=== PATIENT | male | born 1980 | race Two or more races ===

== ENCOUNTER 2020-06-13 10:21 | Emergency (ER) | payer OTHER ==
[~2020-06-13] VITALS: Ht 175.3 cm; Wt 97.5 kg
[~2020-06-13 10:21] MED LIST: KETO10TA2 PO
== END 2020-06-13 16:00 | disposition home or self-care (01) ==
LOC: ER 10:21
DX: R10.32 Left lower quadrant pain (principal)

== ENCOUNTER 2020-06-17 19:53 | Emergency (ER) | payer OTHER ==
[~2020-06-17] VITALS: Ht 172.7 cm; Wt 90.7 kg
== END 2020-06-17 23:30 | disposition home or self-care (01) ==
LOC: ER 19:53
DX: N39.0 Urinary tract infection, site not specified (principal)

== ENCOUNTER 2021-04-19 10:20 | Emergency (ER) | payer OTHER ==
[~2021-04-19] VITALS: Ht 172.7 cm; Wt 98.9 kg
[2021-04-19] MEDS ORDERED: TAMS0.4C PO (16:08)
[2021-04-19] MEDS ORDERED: PYRIDIUM DS200 MG PO (16:08)
[2021-04-19] MEDS ORDERED: KETO10TA2 PO (16:08)
== END 2021-04-19 16:15 ==
LOC: ER 10:20
DX: R10.32 Left lower quadrant pain (principal)